=== PATIENT | male | born 1955 | race Caucasian/White ===

== ENCOUNTER 2025-03-03 21:44 | Inpatient (IN) | payer MEDICARE ==
[~2025-03-03] VITALS: Ht 182.9 cm; Wt 98.9 kg
[2025-03-03] MEDS ORDERED: NALOXONE HCL 0.4 MG/ML AMPUL ONE (21:49)
[2025-03-03] MEDS: NALOXONE HCL 0.4 MG/ML AMPUL IV ONE (21:50)
[2025-03-03] MEDS: IV NS 0.9% 1,000 ML BAG IV ONE (22:00)
[2025-03-03 22:24] LABS: BASOPHILS # (AUTO) 0.1 K/uL (0.0-0.2); EOSINOPHILS # (AUTO) 0.1 K/uL (0.0-0.7); EOSINOPHILS % (AUTO) 1.3 % (0.0-6.0); HEMATOCRIT 32 % (39-51); LYMPHOCYTES # (AUTO) 0.9 K/uL (0.8-4.8); LYMPHOCYTES % (AUTO) 11.4 % (20.0-44.0); MEAN CORPUSCULAR HEMOGLOBIN 24 PG (26.0-33.0); MEAN CORPUSCULAR HGB CONC 31 g/dl (31.0-36.0); MEAN CORPUSCULAR VOLUME 79 fL (80-96); MONOCYTES # (AUTO) 0.8 K/uL (0.1-1.30); MONOCYTES % (AUTO) 10.3 % (2.0-12.0); PLATELET COUNT (AUTO) 199 K/uL (150-450); RED BLOOD CELL COUNT(AUTO) 4.08 MIL/uL (4.5-6.0); RED CELL DISTRIBUTION WIDTH 23.4 % (11.5-15.0); WHITE BLOOD COUNT (AUTO) 7.9 K/uL (4.3-11.0)
[2025-03-03 22:49] LABS: ALANINE AMINOTRANSFERASE 25 U/L (12-78); ALBUMIN 2.6 g/dL (3.4-5.0); ALCOHOL, BLOOD < 3 mg/dL (0-10); ALKALINE PHOSPHATASE 300 U/L (46-116); ASPARTATE AMINOTRANSFERASE 56 U/L (15-37); BILIRUBIN,DIRECT 3.2 mg/dL (0.0-0.2); BILIRUBIN,TOTAL 3.5 mg/dL (0.2-1.0); CALCIUM, SERUM 8.7 mg/dL (8.5-10.1); CARBON DIOXIDE 40 mmol/L (21-32); CHLORIDE 93 mmol/L (98-107); CREATININE 1.3 mg/dL (0.6-1.3); GLUCOSE 148 mg/dL (74-106); SALICYLATE < 0.2 mg/dL (2.8-20.0); SODIUM SERUM 135 mmol/L (136-145); TOTAL PROTEIN, SERUM 7.3 g/dL (6.4-8.2); UREA NITROGEN, BLOOD 27 mg/dL (7-18)
[2025-03-03 22:50] LABS: ACETAMINOPHEN <10 ug/ml (10-30); POTASSIUM 2.3 mmol/L (3.5-5.1)
[2025-03-03 22:59] LABS: LACTIC ACID 4.9 mmol/L (0.4-2.0)
[2025-03-03 23:10] LABS: APPEARANCE,URINE CLEAR (CLEAR); BILIRUBIN,URINE NEGATIVE (NEGATIVE); BLOOD, URINE NEGATIVE Ery/uL (NEGATIVE); COLOR,URINE YELLOW (YELLOW); KETONES,URINE NEGATIVE (NEGATIVE); LEUKOCYTE ESTERASE ,URINE NEGATIVE (NEGATIVE); NITRITE, URINE NEGATIVE (NEGATIVE); PROTEIN,URINE TRACE mg/dl (NEGATIVE); UGLUCOSE NEGATIVE (NEGATIVE); UROBILINOGEN,URINE 0.2 EU/dL (0.2)
[2025-03-03 23:14] LABS: AMPHETAMINE, URINE NEGATIVE (NEGATIVE); BARBITURATE, URINE NEGATIVE (NEGATIVE); BENZODIAZEPINE, URINE NEGATIVE (NEGATIVE); CANNABINOID, URINE NEGATIVE (NEGATIVE); COCCAINE, URINE NEGATIVE (NEGATIVE); OPIATE, URINE NEGATIVE (NEGATIVE); PHENCYCLIDINE SCREEN,URINE NEGATIVE (NEGATIVE)
[2025-03-03 23:18] LABS: INR 1.67 (0.91-1.10); PARTIAL THROMBOPLASTIN TIME 34.2 SEC (24.3-34.3); PROTHROMBIN TIME 17.1 SECS (9.2-11.1)
[2025-03-03] MEDS ORDERED: POTASSIUM CL. PREMIX PERIPHER. 200 ML ONE (23:26)
[2025-03-03] MEDS: LEVOFLOXACIN 750 MG /D5W 150ML PIGGYBACK IV ONE (23:33)
[2025-03-03] MEDS: POTASSIUM CHLORIDE 10 MEQ/50 ML PREMIXED IVPB FOR PERIPHERAL LINE IV ONE (23:33)
[2025-03-04] VITALS (63 sets, daily range): BP systolic 50–127; BP diastolic 21–101; TEMP 97.7–98.6; O2SAT 60–100
[2025-03-04] MEDS ORDERED: ALBUTEROL FS 2.5 MG/3 ML VIAL.NEB NEB PRN (00:30)
[2025-03-04] MEDS ORDERED: ONDANSETRON HCL/PF 4 MG/2 ML VIAL IVP PRN ×2 (00:30→07:00)
[2025-03-04] MEDS ORDERED: Z GUARD REMEDY 4 OZ OINT TP PRN (00:30)
[2025-03-04 00:34] LABS: SERUM AMMONIA 56 umol/L (11-32)
[2025-03-04] MEDS: PROPOFOL 10MG/ML 50ML 50 ML IV PRN (01:00)
[2025-03-04] MEDS ORDERED: PROPOFOL 100 ML ONE (01:03)
[2025-03-04 01:28] LABS: SPERM,URINE Present /HPF (None Seen)
[2025-03-04 01:29] LABS: WBC,URINE 0-2 /HPF (0-3)
[2025-03-04 01:30] LABS: ADD URINE CULTURE NO; BACTERIA,URINE Rare /HPF (None Seen); MUCUS,URINE Moderate /LPF (None Seen); RBC,URINE 0-2 /HPF (0-2)
[2025-03-04] MEDS: NOREPINEPHRINE 8 MG in IV D5W 242 ML IV PRN (02:33)
[2025-03-04] MEDS: NOREPINEPHRINE 8MG/250ML RTU 250 ML IV ONE (02:43)
[2025-03-04 04:43] LABS: LACTIC ACID 6.5 mmol/L (0.4-2.0)
[2025-03-04] MEDS: FUROSEMIDE 20 MG/2 ML VIAL IV SCH (04:46)
[2025-03-04 04:47] LABS: ALBUMIN 2.4 g/dL (3.4-5.0); BILIRUBIN,DIRECT 3.1 mg/dL (0.0-0.2); BILIRUBIN,TOTAL 3.5 mg/dL (0.2-1.0); CALCIUM, SERUM 9.7 mg/dL (8.5-10.1); CREATININE 1.2 mg/dL (0.6-1.3); MAGNESIUM 3.5 mg/dL (1.8-2.4); PHOSPHORUS 3.8 mg/dL (2.5-4.9)
[2025-03-04 04:57] LABS: POTASSIUM 2.6 mmol/L (3.5-5.1)
[2025-03-04 04:59] LABS: BASOPHILS # (AUTO) 0.1 K/uL (0.0-0.2); BASOPHILS % (AUTO) 0.8 % (0.0-2.0); EOSINOPHILS % (AUTO) 0.3 % (0.0-6.0); HEMATOCRIT 32 % (39-51); HEMOGLOBIN 9.7 g/dL (13.5-17.5); LYMPHOCYTES # (AUTO) 1.4 K/uL (0.8-4.8); MEAN CORPUSCULAR HEMOGLOBIN 24 PG (26.0-33.0); MEAN CORPUSCULAR HGB CONC 30 g/dl (31.0-36.0); MEAN CORPUSCULAR VOLUME 80 fL (80-96); MONOCYTES # (AUTO) 1.2 K/uL (0.1-1.30); MONOCYTES % (AUTO) 8.2 % (2.0-12.0); NEUTROPHILS # (AUTO) 11.6 K/uL (1.8-8.9); NEUTROPHILS % (AUTO) 80.7 % (43.0-81.0); PLATELET COUNT (AUTO) 193 K/uL (150-450); RED BLOOD CELL COUNT(AUTO) 4.01 MIL/uL (4.5-6.0); RED CELL DISTRIBUTION WIDTH 23.5 % (11.5-15.0); WHITE BLOOD COUNT (AUTO) 14.4 K/uL (4.3-11.0)
[2025-03-04] MEDS: POTASSIUM CL. PREMIX PERIPHER. 50 ML IV SCH (06:20)
[2025-03-04] MEDS ORDERED: EPINEPHRINE (1:10,000) SYRINGE 1 MG/10 ML DISP.SYRIN IVP ONE (06:35)
[2025-03-04] MEDS: PROPOFOL 100 ML ONE (06:55)
[2025-03-04] MEDS: AMIODARONE 150 MG in IV D5W 100 ML IV ONE (06:59)
[2025-03-04] MEDS: AMIODARONE 450 MG in IV D5W 241 ML IV PRN (07:26)
[2025-03-04] MEDS: PANTOPRAZOLE 40 MG VIAL IV SCH (08:05)
[2025-03-04] MEDS: ENOXAPARIN SODIUM 40 MG/0.4 ML DISP.SYRIN SQ SCH (08:06)
[2025-03-04 08:19] LABS: ANISOCYTOSIS 1+; EOSINOPHILS % (MANUAL) 1 % (0-4); HYPOCHROMASIA 1+; LYMPHOCYTES % (MANUAL) 5 % (16-48); MONOCYTES % (MANUAL) 6 % (0-11.0); NEUTROPHILS % (MANUAL) 88 (42-76); PLATELET ESTIMATE ADEQUATE
[2025-03-04] MEDS ORDERED: EMPA10TA PO (08:40)
[2025-03-04] MEDS ORDERED: AMIN30LI66 PO (08:40)
[2025-03-04] MEDS ORDERED: ACET-868 PO (08:40)
[2025-03-04] MEDS ORDERED: ALLO100T PO (08:40)
[2025-03-04] MEDS ORDERED: CARV3.12 PO (08:40)
[2025-03-04] MEDS ORDERED: ZINC50TA69 PO (08:40)
[2025-03-04] MEDS ORDERED: FLUD0.1T PO (08:40)
[2025-03-04] MEDS ORDERED: LACT10SO58 PO (08:40)
[2025-03-04] MEDS ORDERED: MIDO10TA PO (08:40)
[2025-03-04] MEDS ORDERED: APIX5TAB PO (08:40)
[2025-03-04] MEDS ORDERED: IPRA3AMP22 IH (08:40)
[2025-03-04] MEDS ORDERED: MAGN400O6 PO (08:40)
[2025-03-04] MEDS ORDERED: SENN8.6T19 PO (08:40)
[2025-03-04] MEDS ORDERED: POTA-88 PO (08:40)
[2025-03-04] MEDS ORDERED: CRAN425C6 PO (08:40)
[2025-03-04] MEDS ORDERED: METO2.5T2 PO (08:40)
[2025-03-04] MEDS ORDERED: PANT40TA2 PO (08:40)
[2025-03-04] MEDS ORDERED: FURO-144 PO (08:40)
[2025-03-04] MEDS ORDERED: ACET-2030 PO (08:40)
[2025-03-04] MEDS ORDERED: MENT71OI2 TP (08:40)
[2025-03-04] MEDS ORDERED: ASCO-352 PO (08:40)
[2025-03-04] MEDS ORDERED: SERT100T PO (08:40)
[2025-03-04] MEDS ORDERED: MULT-213 PO (08:40)
[2025-03-04] MEDS ORDERED: NYST30CR2 TP (08:40)
[2025-03-04] MEDS ORDERED: CLOT15CR27 TP (08:40)
[2025-03-04] MEDS ORDERED: MAGN200T4 PO (08:40)
[2025-03-04] MEDS ORDERED: DoBUTamine 500 MG/250 ML PIGGYBACK IV ONE (09:00)
[2025-03-04] MEDS: DOBUTamine 500 MG in IV D5W 210 ML IV PRN (09:17)
[2025-03-04] MEDS: POTASSIUM CHLORIDE 20 MEQ POWDER PACKET NG SCH (10:05)
[2025-03-04] MEDS ORDERED: MEROPENEM 1 G in IV NS 0.9% 100 ML IV SCH ×2 (11:00→13:00)
[2025-03-04] MEDS ORDERED: VANCOMYCIN 1 GM in IV D5W 250ml IV ONE ×2 (12:00→13:00)
[2025-03-04] MEDS: VANCOMYCIN 1.5 GM in IV D5W 500 ML IV ONE (12:30)
[2025-03-04] MEDS ORDERED: CALCIUM CHLORIDE 1,000 MG/10 ML DISP.SYRIN IV ONE (12:50)
[2025-03-04] MEDS: MEROPENEM 1 G in IV NS 0.9% 100 ML IV SCH (14:47)
[2025-03-04] MEDS: PROPOFOL 100 ML IV PRN (17:20)
[2025-03-04 17:34] LABS: CALCIUM, SERUM 8.8 mg/dL (8.5-10.1); CREATININE 1.4 mg/dL (0.6-1.3); POTASSIUM 4.5 mmol/L (3.5-5.1)
[2025-03-04] MEDS: NOREPINEPHRINE 32 MG in IV NS 0.9% 218 ML IV PRN (17:57)
[2025-03-04] MEDS ORDERED: LEVOFLOXACIN 750 MG /D5W 150ML 750 MG in PREMIX 1 EA IV SCH (21:00)
[2025-03-04] MEDS: LEVETIRACETAM (500MG) 2,000 MG in IV NS 0.9% 80 ML IV ONE (21:04)
[2025-03-05] VITALS (101 sets, daily range): BP systolic 74–201; BP diastolic 60–184; TEMP 97.7–102.7; O2SAT 80–100
[2025-03-05] MEDS: VANCOMYCIN 1 GM in IV D5W 250ml IV SCH (00:10)
[2025-03-05 02:17] LABS: BASOPHILS # (AUTO) 0.1 K/uL (0.0-0.2); EOSINOPHILS % (AUTO) 0.1 % (0.0-6.0); HEMATOCRIT 33 % (39-51); HEMOGLOBIN 10.3 g/dL (13.5-17.5); LYMPHOCYTES # (AUTO) 1.4 K/uL (0.8-4.8); LYMPHOCYTES % (AUTO) 9.4 % (20.0-44.0); MEAN CORPUSCULAR HEMOGLOBIN 25 PG (26.0-33.0); MEAN CORPUSCULAR HGB CONC 32 g/dl (31.0-36.0); MEAN CORPUSCULAR VOLUME 78 fL (80-96); MONOCYTES # (AUTO) 1.6 K/uL (0.1-1.30); MONOCYTES % (AUTO) 11.2 % (2.0-12.0); NEUTROPHILS # (AUTO) 11.3 K/uL (1.8-8.9); NEUTROPHILS % (AUTO) 78.3 % (43.0-81.0); PLATELET COUNT (AUTO) 216 K/uL (150-450); RED BLOOD CELL COUNT(AUTO) 4.18 MIL/uL (4.5-6.0); RED CELL DISTRIBUTION WIDTH 22.9 % (11.5-15.0); WHITE BLOOD COUNT (AUTO) 14.4 K/uL (4.3-11.0)
[2025-03-05 02:31] LABS: CALCIUM, SERUM 8.5 mg/dL (8.5-10.1); CREATININE 1.5 mg/dL (0.6-1.3); MAGNESIUM 2.4 mg/dL (1.8-2.4); PHOSPHORUS 3.5 mg/dL (2.5-4.9); POTASSIUM 3.9 mmol/L (3.5-5.1)
[2025-03-05] MEDS: LIDOCAINE 2% 20 ML MDV IJ ONE (03:07)
[2025-03-05] MEDS: LIDOCAINE 100MG/5ML DISP SYR ONE (03:12)
[2025-03-05] MEDS ORDERED: LIDOCAINE HCL IV ONE (03:31)
[2025-03-05] MEDS ORDERED: D5W IV ONE (03:31)
[2025-03-05] MEDS: IV LIDOCAINE HCL/D5W/PF/500ML 2,000 MG in PREMIX 1 EA IV PRN (04:06)
[2025-03-05] MEDS ORDERED: EPINEPHRINE (1:10,000) SYRINGE 1 MG/10 ML DISP.SYRIN IVP ONE ×2 (07:04→10:45)
[2025-03-05] MEDS: DOBUTamine 500 MG in IV D5W 210 ML IV PRN (08:37)
[2025-03-05] MEDS ORDERED: POTASSIUM CHLORIDE 20 MEQ POWDER PACKET GT SCH (09:00)
[2025-03-05] MEDS: LEVETIRACETAM (500MG) 1,000 MG in IV NS 0.9% 90 ML IV SCH (09:29)
[2025-03-05] MEDS: IV NS 0.9% 250 ML IV PRN (09:30)
[2025-03-05] MEDS: VANCOMYCIN 750 MG in IV D5W 250 ML IV SCH (12:38)
[2025-03-05] MEDS: ACETAMINOPHEN 650 MG/20.3 ML UDC NG PRN (12:38)
[2025-03-05 12:43] LABS: THYROID STIMULATING HORMONE 2.03 uIU/mL (0.358-3.74)
[2025-03-06] VITALS (81 sets, daily range): BP systolic 70–91; BP diastolic 50–71; TEMP 99–103.6; O2SAT 84–100
[2025-03-06] MEDS: PHENYLEPHRINE 50 MG in IV NS 0.9% 245 ML IV PRN (09:15)
[2025-03-06 10:02] LABS: BASOPHILS # (AUTO) 0.1 K/uL (0.0-0.2); BASOPHILS % (AUTO) 0.6 % (0.0-2.0); HEMATOCRIT 32 % (39-51); LYMPHOCYTES % (AUTO) 6.7 % (20.0-44.0); MEAN CORPUSCULAR HEMOGLOBIN 24 PG (26.0-33.0); MEAN CORPUSCULAR HGB CONC 32 g/dl (31.0-36.0); MEAN CORPUSCULAR VOLUME 77 fL (80-96); MONOCYTES # (AUTO) 1.6 K/uL (0.1-1.30); MONOCYTES % (AUTO) 11.2 % (2.0-12.0); NEUTROPHILS # (AUTO) 11.9 K/uL (1.8-8.9); NEUTROPHILS % (AUTO) 81.5 % (43.0-81.0); PLATELET COUNT (AUTO) 224 K/uL (150-450); RED BLOOD CELL COUNT(AUTO) 4.11 MIL/uL (4.5-6.0); WHITE BLOOD COUNT (AUTO) 14.6 K/uL (4.3-11.0)
[2025-03-06 10:25] LABS: ALBUMIN 1.8 g/dL (3.4-5.0); CALCIUM, SERUM 7.9 mg/dL (8.5-10.1); CREATININE 1.9 mg/dL (0.6-1.3); POTASSIUM 3.8 mmol/L (3.5-5.1); TOTAL PROTEIN, SERUM 6.1 g/dL (6.4-8.2)
[2025-03-06] MEDS: ACETAMINOPHEN 650 MG/20.3 ML UDC NG PRN (15:21)
[2025-03-06] MEDS: VANCOMYCIN HCL 1.25 GM in IV D5W 250 ML IV SCH (23:00)
[2025-03-07] VITALS (89 sets, daily range): BP systolic 74–94; BP diastolic 51–75; TEMP 97.4–100.2; O2SAT 83–100
[2025-03-07 04:58] LABS: BASOPHILS % (AUTO) 0.3 % (0.0-2.0); HEMATOCRIT 33 % (39-51); HEMOGLOBIN 10.1 g/dL (13.5-17.5); LYMPHOCYTES # (AUTO) 1.2 K/uL (0.8-4.8); LYMPHOCYTES % (AUTO) 7.8 % (20.0-44.0); MEAN CORPUSCULAR HEMOGLOBIN 24 PG (26.0-33.0); MEAN CORPUSCULAR HGB CONC 31 g/dl (31.0-36.0); MEAN CORPUSCULAR VOLUME 78 fL (80-96); MONOCYTES # (AUTO) 1.3 K/uL (0.1-1.30); MONOCYTES % (AUTO) 8.7 % (2.0-12.0); NEUTROPHILS # (AUTO) 12.4 K/uL (1.8-8.9); NEUTROPHILS % (AUTO) 83.2 % (43.0-81.0); PLATELET COUNT (AUTO) 191 K/uL (150-450); RED BLOOD CELL COUNT(AUTO) 4.21 MIL/uL (4.5-6.0); RED CELL DISTRIBUTION WIDTH 23.4 % (11.5-15.0); WHITE BLOOD COUNT (AUTO) 14.9 K/uL (4.3-11.0)
[2025-03-07 05:06] LABS: ALANINE AMINOTRANSFERASE 786 U/L (12-78); ALBUMIN 1.8 g/dL (3.4-5.0); ALKALINE PHOSPHATASE 150 U/L (46-116); ASPARTATE AMINOTRANSFERASE > 1000 U/L (15-37); BILIRUBIN,TOTAL 9.2 mg/dL (0.2-1.0); CARBON DIOXIDE 32 mmol/L (21-32); CHLORIDE 94 mmol/L (98-107); CREATININE 1.9 mg/dL (0.6-1.3); GLUCOSE 134 mg/dL (74-106); MAGNESIUM 2.5 mg/dL (1.8-2.4); POTASSIUM 3.8 mmol/L (3.5-5.1); SODIUM SERUM 132 mmol/L (136-145); TOTAL PROTEIN, SERUM 6.1 g/dL (6.4-8.2); UREA NITROGEN, BLOOD 58 mg/dL (7-18)
[2025-03-07] MEDS ORDERED: PHENYLEPHRINE 100 MG in IV NS 0.9% 240 ML IV PRN (08:00)
[2025-03-07 10:16] LABS: FOLIC ACID 6.6 ng/mL (>3.0)
[2025-03-07 10:22] LABS: ABG BASE EXCESS 6.3 mmol/L (-2.0-3.0); ABG OXYGEN SATURATION 99.3 % (94.0-98.0); ABG PCO2 33.1 mmHg (35.0-48.0); ABG PH 7.555 (7.350-7.450); ABG PO2 171.9 mmHg (83.0-108.0); ABG TOTAL HEMOGLOBIN 10.9 G/dL (13.5-17.5); COHb 0.2 % (0.5-1.5); MetHb 0.1 % (0.0-1.5); PEEP,BG 10 cm H2O; SITE, ABG LEFT FEMORAL; VT, ABG 500 mL
[2025-03-07 10:22] LABS: ABG BASE EXCESS 5.6 mmol/L (-2.0-3.0); ABG OXYGEN SATURATION 94.5 % (94.0-98.0); ABG PCO2 49.5 mmHg (35.0-48.0); ABG PH 7.415 (7.350-7.450); ABG PO2 80.5 mmHg (83.0-108.0); ABG TOTAL HEMOGLOBIN 11.1 G/dL (13.5-17.5); COHb 0.4 % (0.5-1.5); MetHb 0.1 % (0.0-1.5); PEEP,BG 10 cm H2O; SITE, ABG RIGHT RADIAL; VT, ABG 475 mL
[2025-03-07] MEDS: PHENYLEPHRINE 100 MG in IV NS 0.9% 240 ML IV PRN (11:12)
[2025-03-07] MEDS: MICAFUNGIN SODIUM 100 MG in IV NS 0.9% 100 ML IV SCH (16:24)
[2025-03-07] MEDS: MEROPENEM 1 G in IV NS 0.9% 100 ML IV SCH (17:58)
[2025-03-07] MEDS: LEVETIRACETAM (500MG) 750 MG in IV NS 0.9% 100 ML IV SCH (20:12)
[2025-03-08] VITALS (105 sets, daily range): BP systolic 72–94; BP diastolic 54–76; TEMP 98.7–100; O2SAT 90–100
[2025-03-08 07:54] LABS: BASOPHILS # (AUTO) 0.1 K/uL (0.0-0.2); BASOPHILS % (AUTO) 0.4 % (0.0-2.0); EOSINOPHILS % (AUTO) 0.1 % (0.0-6.0); HEMATOCRIT 35 % (39-51); HEMOGLOBIN 10.8 g/dL (13.5-17.5); LYMPHOCYTES # (AUTO) 0.7 K/uL (0.8-4.8); LYMPHOCYTES % (AUTO) 3.8 % (20.0-44.0); MEAN CORPUSCULAR HEMOGLOBIN 24 PG (26.0-33.0); MEAN CORPUSCULAR HGB CONC 31 g/dl (31.0-36.0); MEAN CORPUSCULAR VOLUME 78 fL (80-96); MONOCYTES # (AUTO) 1.6 K/uL (0.1-1.30); MONOCYTES % (AUTO) 9.2 % (2.0-12.0); NEUTROPHILS # (AUTO) 15.5 K/uL (1.8-8.9); NEUTROPHILS % (AUTO) 86.5 % (43.0-81.0); PLATELET COUNT (AUTO) 162 K/uL (150-450); RED CELL DISTRIBUTION WIDTH 23.1 % (11.5-15.0); WHITE BLOOD COUNT (AUTO) 17.9 K/uL (4.3-11.0)
[2025-03-08 08:05] LABS: ALANINE AMINOTRANSFERASE 685 U/L (12-78); ALBUMIN 1.7 g/dL (3.4-5.0); ALKALINE PHOSPHATASE 137 U/L (46-116); BILIRUBIN,TOTAL 9.3 mg/dL (0.2-1.0); CALCIUM, SERUM 7.8 mg/dL (8.5-10.1); CARBON DIOXIDE 26 mmol/L (21-32); CHLORIDE 95 mmol/L (98-107); GLUCOSE 100 mg/dL (74-106); POTASSIUM 4.5 mmol/L (3.5-5.1); SODIUM SERUM 134 mmol/L (136-145); TOTAL PROTEIN, SERUM 6.1 g/dL (6.4-8.2); UREA NITROGEN, BLOOD 61 mg/dL (7-18)
[2025-03-08 08:42] LABS: CREATININE 1.8 mg/dL (0.6-1.3)
[2025-03-08 08:49] LABS: ASPARTATE AMINOTRANSFERASE > 1000 U/L (15-37)
[2025-03-08 08:57] LABS: ABG BASE EXCESS 4.3 mmol/L (-2.0-3.0); ABG OXYGEN SATURATION 98.7 % (94.0-98.0); ABG PCO2 50.3 mmHg (35.0-48.0); ABG PH 7.394 (7.350-7.450); ABG PO2 140.7 mmHg (83.0-108.0); COHb 0.4 % (0.5-1.5); MetHb 0.1 % (0.0-1.5); O2Hb 98.2 % (94.0-97.0); PEEP,BG 10 cm H2O; SITE, ABG RIGHT RADIAL; VT, ABG 475 mL
[2025-03-08] MEDS: VANCOMYCIN 1 GM in IV D5W 250ml IV SCH (10:25)
[2025-03-08] MEDS: APIXABAN 5 MG TABLET PO SCH (10:26)
[2025-03-08] MEDS: FENTANYL CITRAT IV 2,500 MCG in IV NS 0.9% 200 ML IV PRN (14:00)
[2025-03-09] VITALS (95 sets, daily range): BP systolic 78–110; BP diastolic 61–89; TEMP 98.4–99.6; O2SAT 85–100
[2025-03-09 04:56] LABS: BASOPHILS # (AUTO) 0.1 K/uL (0.0-0.2); BASOPHILS % (AUTO) 0.6 % (0.0-2.0); HEMATOCRIT 32 % (39-51); HEMOGLOBIN 9.8 g/dL (13.5-17.5); LYMPHOCYTES # (AUTO) 0.5 K/uL (0.8-4.8); LYMPHOCYTES % (AUTO) 3.2 % (20.0-44.0); MEAN CORPUSCULAR HEMOGLOBIN 24 PG (26.0-33.0); MEAN CORPUSCULAR HGB CONC 30 g/dl (31.0-36.0); MEAN CORPUSCULAR VOLUME 79 fL (80-96); MONOCYTES # (AUTO) 1.4 K/uL (0.1-1.30); MONOCYTES % (AUTO) 8.5 % (2.0-12.0); NEUTROPHILS # (AUTO) 14.3 K/uL (1.8-8.9); NEUTROPHILS % (AUTO) 87.7 % (43.0-81.0); PLATELET COUNT (AUTO) 146 K/uL (150-450); RED CELL DISTRIBUTION WIDTH 23.1 % (11.5-15.0); WHITE BLOOD COUNT (AUTO) 16.3 K/uL (4.3-11.0)
[2025-03-09 05:08] LABS: BILIRUBIN,TOTAL 10.2 mg/dL (0.2-1.0); CALCIUM, SERUM 7.8 mg/dL (8.5-10.1); CREATININE 1.4 mg/dL (0.6-1.3); MAGNESIUM 2.5 mg/dL (1.8-2.4); PHOSPHORUS 4.1 mg/dL (2.5-4.9); TOTAL PROTEIN, SERUM 5.9 g/dL (6.4-8.2)
[2025-03-09 05:30] LABS: ALBUMIN 1.2 g/dL (3.4-5.0)
[2025-03-09] MEDS: ALBUMIN 25% 25 GM in PREMIX 1 EA IV SCH (09:18)
[2025-03-09] MEDS: PANTOPRAZOLE 40 MG/PACK PACK GT SCH (09:19)
[2025-03-09] MEDS: HYDROCORTISONE SOD SUCCINATE 100 MG/2 ML VIAL IV SCH (09:59)
[2025-03-10] VITALS (97 sets, daily range): BP systolic 69–113; BP diastolic 49–86; TEMP 98.4–100.1; O2SAT 92–100
[2025-03-10 04:43] LABS: BASOPHILS % (AUTO) 0.2 % (0.0-2.0); HEMATOCRIT 30 % (39-51); HEMOGLOBIN 9.3 g/dL (13.5-17.5); LYMPHOCYTES # (AUTO) 0.2 K/uL (0.8-4.8); LYMPHOCYTES % (AUTO) 1.8 % (20.0-44.0); MEAN CORPUSCULAR HEMOGLOBIN 24 PG (26.0-33.0); MEAN CORPUSCULAR HGB CONC 31 g/dl (31.0-36.0); MEAN CORPUSCULAR VOLUME 77 fL (80-96); MONOCYTES # (AUTO) 0.3 K/uL (0.1-1.30); MONOCYTES % (AUTO) 2.5 % (2.0-12.0); NEUTROPHILS # (AUTO) 12.2 K/uL (1.8-8.9); NEUTROPHILS % (AUTO) 95.5 % (43.0-81.0); PLATELET COUNT (AUTO) 169 K/uL (150-450); RED CELL DISTRIBUTION WIDTH 23.1 % (11.5-15.0); WHITE BLOOD COUNT (AUTO) 12.8 K/uL (4.3-11.0)
[2025-03-10 05:27] LABS: ALBUMIN 2.4 g/dL (3.4-5.0); BILIRUBIN,TOTAL 13.5 mg/dL (0.2-1.0); CALCIUM, SERUM 8.5 mg/dL (8.5-10.1); CREATININE 1.3 mg/dL (0.6-1.3); POTASSIUM 3.1 mmol/L (3.5-5.1); TOTAL PROTEIN, SERUM 6.6 g/dL (6.4-8.2)
[2025-03-10] MEDS: POTASSIUM CHLORIDE 20 MEQ POWDER PACKET GT ONE (06:18)
[2025-03-10 07:34] LABS: ABG BASE EXCESS 3.1 mmol/L (-2.0-3.0); ABG OXYGEN SATURATION 95.6 % (94.0-98.0); ABG PCO2 47.8 mmHg (35.0-48.0); ABG PH 7.394 (7.350-7.450); ABG PO2 85.1 mmHg (83.0-108.0); ABG TOTAL HEMOGLOBIN 10.5 G/dL (13.5-17.5); COHb 0.6 % (0.5-1.5); MetHb 0.3 % (0.0-1.5); O2Hb 94.7 % (94.0-97.0); PEEP,BG 8 cm H2O; SITE, ABG RIGHT RADIAL; VT, ABG 475 mL
[2025-03-10 08:11] LABS: IRON, SERUM 15 ug/dl (50-175); TOTAL IRON BINDING CAPACITY 168 ug/dl (250-450)
[2025-03-10 08:29] LABS: FERRITIN 251 ng/mL (8-388)
[2025-03-10] MEDS: POTASSIUM CHLORIDE 20 MEQ POWDER PACKET GT SCH (10:17)
[2025-03-10] MEDS: SOD FERRIC GLUC 125 MG in IV NS 0.9% 100 ML IV SCH (13:51)
[2025-03-11] VITALS (95 sets, daily range): BP systolic 81–100; BP diastolic 54–76; TEMP 98.5–103; O2SAT 88–97
[2025-03-11 04:37] LABS: BASOPHILS % (AUTO) 0.4 % (0.0-2.0); HEMATOCRIT 30 % (39-51); HEMOGLOBIN 9.2 g/dL (13.5-17.5); LYMPHOCYTES # (AUTO) 0.3 K/uL (0.8-4.8); LYMPHOCYTES % (AUTO) 2.2 % (20.0-44.0); MEAN CORPUSCULAR HEMOGLOBIN 24 PG (26.0-33.0); MEAN CORPUSCULAR HGB CONC 31 g/dl (31.0-36.0); MEAN CORPUSCULAR VOLUME 78 fL (80-96); MONOCYTES # (AUTO) 1.1 K/uL (0.1-1.30); MONOCYTES % (AUTO) 7.8 % (2.0-12.0); NEUTROPHILS # (AUTO) 12.3 K/uL (1.8-8.9); NEUTROPHILS % (AUTO) 89.6 % (43.0-81.0); PLATELET COUNT (AUTO) 192 K/uL (150-450); RED BLOOD CELL COUNT(AUTO) 3.82 MIL/uL (4.5-6.0); RED CELL DISTRIBUTION WIDTH 23.7 % (11.5-15.0); WHITE BLOOD COUNT (AUTO) 13.8 K/uL (4.3-11.0)
[2025-03-11 04:48] LABS: ALBUMIN 2.2 g/dL (3.4-5.0); BILIRUBIN,TOTAL 13.1 mg/dL (0.2-1.0); CALCIUM, SERUM 8.3 mg/dL (8.5-10.1); CREATININE 1.5 mg/dL (0.6-1.3); POTASSIUM 4.2 mmol/L (3.5-5.1); TOTAL PROTEIN, SERUM 6.5 g/dL (6.4-8.2)
[2025-03-11] MEDS: ACETAMINOPHEN 325 MG TABLET PO PRN (07:39)
[2025-03-11] MEDS ORDERED: NEPRO 1,000 ML BOTTLE GT SCH (08:00)
[2025-03-11] MEDS: MEROPENEM 1 G in IV NS 0.9% 100 ML IV SCH (12:59)
[2025-03-12] VITALS (96 sets, daily range): BP systolic 60–108; BP diastolic 44–92; TEMP 98.9–100.5; O2SAT 89–100
[2025-03-12 04:32] LABS: BASOPHILS # (AUTO) 0.3 K/uL (0.0-0.2); BASOPHILS % (AUTO) 2.5 % (0.0-2.0); EOSINOPHILS % (AUTO) 0.1 % (0.0-6.0); HEMATOCRIT 29 % (39-51); HEMOGLOBIN 9.1 g/dL (13.5-17.5); LYMPHOCYTES # (AUTO) 0.7 K/uL (0.8-4.8); LYMPHOCYTES % (AUTO) 6.2 % (20.0-44.0); MEAN CORPUSCULAR HEMOGLOBIN 25 PG (26.0-33.0); MEAN CORPUSCULAR HGB CONC 32 g/dl (31.0-36.0); MEAN CORPUSCULAR VOLUME 79 fL (80-96); MONOCYTES # (AUTO) 1.1 K/uL (0.1-1.30); MONOCYTES % (AUTO) 9.5 % (2.0-12.0); NEUTROPHILS # (AUTO) 9.7 K/uL (1.8-8.9); NEUTROPHILS % (AUTO) 81.7 % (43.0-81.0); PLATELET COUNT (AUTO) 170 K/uL (150-450); RED BLOOD CELL COUNT(AUTO) 3.66 MIL/uL (4.5-6.0); RED CELL DISTRIBUTION WIDTH 24.6 % (11.5-15.0); WHITE BLOOD COUNT (AUTO) 11.8 K/uL (4.3-11.0)
[2025-03-12 04:51] LABS: ALBUMIN 2.1 g/dL (3.4-5.0); BILIRUBIN,TOTAL 12.9 mg/dL (0.2-1.0); CREATININE 1.9 mg/dL (0.6-1.3); POTASSIUM 4.3 mmol/L (3.5-5.1); TOTAL PROTEIN, SERUM 6.2 g/dL (6.4-8.2)
[2025-03-12] MEDS ORDERED: ACETAMINOPHEN 650 MG/20.3 ML UDC GT PRN (07:30)
[2025-03-12] MEDS: BUMETANIDE INJ 6 MG in IV NS 0.9% 36 ML IV ONE (11:01)
[2025-03-12] MEDS: LEVETIRACETAM (500MG) 2,000 MG in IV NS 0.9% 80 ML IV ONE (12:10)
[2025-03-12] MEDS ORDERED: LEVETIRACETAM SOL (5 ML) 100 MG/ML UDC GT SCH (21:00)
[2025-03-12] MEDS ORDERED: LEVETIRACETAM (500MG) 500 MG/5 ML VIAL IV ONE ×3 (21:11→21:17)
[2025-03-12] MEDS: MEROPENEM 500MG/NS 50 ML PB IV ONE (21:16)
[2025-03-12] MEDS ORDERED: MEROPENEM 1 G VIAL IV ONE (21:24)
[2025-03-12] MEDS: LEVETIRACETAM (500MG) 1,500 MG in IV NS 0.9% 85 ML IV SCH (21:42)
[2025-03-13] VITALS: BP 81/60; TEMP 98.2; O2SAT 98
[2025-03-13] MEDS ORDERED: LEVETIRACETAM (500MG) 1,000 MG in IV NS 0.9% 90 ML IV SCH
[2025-03-13 01:00] VITALS: BP 79/66; O2SAT 99
[2025-03-13 02:00] VITALS: BP 86/74
[2025-03-13 02:15] VITALS: BP 71/55
[2025-03-13 02:30] VITALS: BP 76/24
[2025-03-13] MEDS: CALCIUM CHLORIDE 1,000 MG/10 ML DISP.SYRIN ONE (02:33)
[2025-03-13] MEDS ORDERED: EPINEPHRINE (1:10,000) SYRINGE 1 MG/10 ML DISP.SYRIN IVP ONE (07:07)
== END 2025-03-13 07:08 ==
LOC: ER 21:56 → ICU 03-04 00:48
PROVIDERS: ADMIT Nurse Practitioner Family; ATTEND Internal Medicine
PROC: 5A1955Z Respiratory Ventilation, Greater than 96 Consecutive Hours (ICD-10-PCS; principal; 2025-03-04)
PROC: 0BH17EZ Insertion of Endotracheal Airway into Trachea, Via Natural or Artificial Opening (ICD-10-PCS; 2025-03-04)
PROC: 5A12012 Performance of Cardiac Output, Single, Manual (ICD-10-PCS; 2025-03-04)
PROC: 5A12012 Performance of Cardiac Output, Single, Manual (ICD-10-PCS; 2025-03-04)
PROC: 5A12012 Performance of Cardiac Output, Single, Manual (ICD-10-PCS; 2025-03-05)
PROC: 5A12012 Performance of Cardiac Output, Single, Manual (ICD-10-PCS; 2025-03-13)
DX: I13.0 Hypertensive heart and chronic kidney disease with heart failure and stage 1 through stage 4 chronic kidney disease, or unspecified chronic kidney disease (principal); G92.8 Other toxic encephalopathy; I21.A1 Myocardial infarction type 2; I50.43 Acute on chronic combined systolic (congestive) and diastolic (congestive) heart failure; J96.01 Acute respiratory failure with hypoxia; K72.00 Acute and subacute hepatic failure without coma; R65.21 Severe sepsis with septic shock; Z99.11 Dependence on respirator [ventilator] status; E46 Unspecified protein-calorie malnutrition; D68.59 Other primary thrombophilia; E87.20 Acidosis, unspecified; E87.1 Hypo-osmolality and hyponatremia; G93.1 Anoxic brain damage, not elsewhere classified; I47.20 Ventricular tachycardia, unspecified; I42.8 Other cardiomyopathies; N18.9 Chronic kidney disease, unspecified; I25.10 Atherosclerotic heart disease of native coronary artery without angina pectoris; I73.9 Peripheral vascular disease, unspecified; I48.91 Unspecified atrial fibrillation; Z95.810 Presence of automatic (implantable) cardiac defibrillator; R13.10 Dysphagia, unspecified; Z93.0 Tracheostomy status; Z93.1 Gastrostomy status; M89.8X9 Other specified disorders of bone, unspecified site; K74.60 Unspecified cirrhosis of liver; Z88.1 Allergy status to other antibiotic agents; Z88.2 Allergy status to sulfonamides; Z88.3 Allergy status to other anti-infective agents; R57.0 Cardiogenic shock; R73.9 Hyperglycemia, unspecified; E80.6 Other disorders of bilirubin metabolism; E78.5 Hyperlipidemia, unspecified; D50.9 Iron deficiency anemia, unspecified; E87.6 Hypokalemia; E88.09 Other disorders of plasma-protein metabolism, not elsewhere classified; I46.2 Cardiac arrest due to underlying cardiac condition; F10.21 Alcohol dependence, in remission; I70.0 Atherosclerosis of aorta; Z78.1 Physical restraint status; Z79.51 Long term (current) use of inhaled steroids; Z79.899 Other long term (current) drug therapy; Z79.01 Long term (current) use of anticoagulants; Z79.84 Long term (current) use of oral hypoglycemic drugs; T50.2X5A Adverse effect of carbonic-anhydrase inhibitors, benzothiadiazides and other diuretics, initial encounter; Y92.9 Unspecified place or not applicable; I49.01 Ventricular fibrillation
CPT/HCPCS: 31720; 36415; 36600; 70450-TC; 71045-TC; 76770-TC; 80048-TC; 80053-TC; 80061-TC; 80076-TC; 80202-TC; 81001; 82140-TC; 82533; 82607-TC; 82728-TC; 82803-TC; 82962-TC; 83540-TC; 83605-TC; 83735-TC; 83880; 83921; 84100-TC; 84425; 84439-TC; 84443-TC; 84484-TC; 84703-TC; 85025-TC; 85730-TC; 87040-TC; 87081-TC; 92950-TC; 93307-TC; 94002-TC; 94003-TC; 94640-TC; 94760-TC; 94762-TC; 94799-TC; 95819-TC; 99082-TC; A4216; A4217; A4223; G0378; G0480; J0171; J0282; J1250; J1650; J1720; J1938; J1953; J1956; J2002; J2003; J2185; J2248; J2310; J2470; J2916; J3010; J3370; J3371; J3475; J3480; J3490; J7030; J7050; J7060; P9047